=== PATIENT | female | born 1985 | race Caucasian/White ===

== ENCOUNTER 2019-02-14 06:17 | Inpatient (IN) | payer OTHER ==
[2019-02-14] MEDS ORDERED: ROPIVACAINE 0.5 % 30 ML VIAL ×2 (06:54→07:33)
[2019-02-14] MEDS ORDERED: NEOMYC/POLYMYX/BACIT 30 GM OINT (06:54)
[2019-02-14] MEDS ORDERED: SUGAMMADEX SODIUM 200 MG/2 ML VIAL IV (07:26)
[2019-02-14] MEDS ORDERED: PROPOFOL 20 ML (07:27)
[2019-02-14] MEDS ORDERED: GLYCOPYRROLATE 0.4 MG INJ (07:27)
[2019-02-14] MEDS ORDERED: CEFAZOLIN 1 GM INJ (07:27)
[2019-02-14] MEDS ORDERED: ROCURONIUM 50 MG INJ (07:27)
[2019-02-14] MEDS ORDERED: NEOSTIGMINE 3 MG/3 ML SYRINGE (07:27)
[2019-02-14] MEDS ORDERED: DEXAMETHASONE 4 MG/ML 5 ML INJ (07:30)
[2019-02-14] MEDS ORDERED: ONDANSETRON 4 MG INJ (07:30)
[2019-02-14] MEDS ORDERED: FENTAnyl 50 MCG/ML VIAL (07:30)
[2019-02-14] MEDS ORDERED: MIDAZOLAM 1 MG/ML 2 ML INJ (07:30)
[2019-02-14] MEDS ORDERED: ONDANSETRON 4 MG INJ IV (08:00)
[2019-02-14] MEDS: CEFAZOLIN 1 GM/50 ML (PMX) 50 ML IVPB ×2 (08:00→17:03)
[2019-02-14] MEDS ORDERED: CEFAZOLIN 1 GM INJ IV (08:00)
[2019-02-14] MEDS ORDERED: TRIMETHOBENZAMIDE 100 MG/ML VIAL IM (09:00)
[2019-02-14] MEDS: GABAPENTIN 300 MG CAP PO ×3 (09:00→21:57)
[2019-02-14] MEDS ORDERED: LABETALOL HCL 20MG INJ IV (09:00)
[2019-02-14] MEDS ORDERED: ALBUTEROL 0.083% (NEB) 2.5 MG/3 ML AMP HHN (09:00)
[2019-02-14] MEDS ORDERED: FENTAnyl 50 MCG/ML VIAL IV ×2 (09:00)
[2019-02-14] MEDS ORDERED: IPRATROPIUM (NEB) 0.5 MG/2.5 ML AMP HHN (09:00)
[2019-02-14] MEDS ORDERED: hydrALAzine 20 MG INJ IV (09:00)
[2019-02-14] MEDS ORDERED: OXYCODONE/ACETAMINOPHEN (5/325) TAB PO ×2 (09:00)
[2019-02-14] MEDS ORDERED: EPHEDrine 25 MG/5 ML SYG IV (09:00)
[2019-02-14] MEDS: POLYMYXIN/BACITRACIN 1L IRRIG (09:57)
[2019-02-14] MEDS ORDERED: POLYMYXIN/BACITRACIN 1L IRRIG (11:55)
[2019-02-14] MEDS: MEPERIDINE 25 MG INJ IV (12:44)
[2019-02-14] MEDS: ONDANSETRON 4 MG INJ IV (12:45)
[2019-02-14] MEDS: MIDAZOLAM 1 MG/ML 2 ML INJ IV (12:48)
[2019-02-14] MEDS: HYDROmorphONE 1 MG/5 ML IV SYRINGE IV ×5 (12:55→13:36)
[2019-02-14] MEDS: DIPHENHYDRAMINE 50 MG INJ IV (13:03)
[2019-02-14] MEDS: FENTAnyl 50 MCG/ML VIAL IV (13:40)
[2019-02-14] MEDS: HYDROmorphONE 1 MG/ML SYG IV ×2 (14:53→17:12)
[2019-02-14] MEDS: oxyCODONE 5 MG TAB PO (15:58)
[2019-02-14 16:41] LABS: HEPATITIS B SURFACE ANTIGEN NEGATIVE (NEGATIVE)
[2019-02-14 16:58] LABS: HIV 1&2 ANTIBODY NEGATIVE (NEGATIVE)
[2019-02-14] MEDS ORDERED: HYDROmorphONE 1 MG/ML SYG IV (17:00)
[2019-02-14 17:15] LABS: HEPATITIS C VIRAL ANTIBODY REACTIVE (NEGATIVE)
[2019-02-14] MEDS: NICOTINE (14 MG/24 HR) PATCH TRANSDERM (18:14)
[2019-02-14] MEDS: HYDROmorphONE 2 MG/ML SYG IV (20:27)
[2019-02-14] MEDS: QUETIAPINE 25 MG TAB PO (21:00)
[2019-02-14] MEDS: METHADONE (1 MG/ML 5 ML PO UD SYG) PO (21:58)
[2019-02-14] MEDS: HYDROmorphONE 0.2 MG/ML PCA IV (22:10)
[2019-02-15] MEDS: CEFAZOLIN 1 GM/50 ML (PMX) 50 ML IVPB ×4 (00:26→23:55)
[2019-02-15] MEDS: METHADONE (1 MG/ML 5 ML PO UD SYG) PO ×4 (05:54→23:55)
[2019-02-15] MEDS: HYDROmorphONE 2 MG/ML SYG IV ×3 (06:03→11:57)
[2019-02-15] MEDS: MULTIVITAMINS 10 ML, THIAMINE 100 MG, FOLIC ACID 1 MG in SOD CHLORIDE 0.9% 1,000 ML IVPB (08:59)
[2019-02-15] MEDS: GABAPENTIN 300 MG CAP PO ×3 (08:59→22:27)
[2019-02-15] MEDS: QUETIAPINE 25 MG TAB PO ×2 (09:00→22:27)
[2019-02-15] MEDS: NICOTINE (14 MG/24 HR) PATCH TRANSDERM (09:01)
[2019-02-15] MEDS: LORAZEPAM 2 MG INJ IV ×3 (09:05→22:36)
[2019-02-15 12:39] LABS: ADD MAN DIFF? NO
[2019-02-15 12:43] LABS: WHITE BLOOD COUNT 8.1 10^3/ul (4.8-10.8)
[2019-02-15 12:43] LABS: BASOPHILS % 0.1 % (0.0-2.0); HEMATOCRIT 33.8 % (37.0-47.0); LYMPHOCYTES # 1.9 10^3/ul (0.8-2.9); LYMPHOCYTES % 23.9 % (15.0-51.0); MEAN CORPUSCULAR HEMOGLOBIN 30.7 pg (29.0-33.0); MEAN CORPUSCULAR HGB CONC 32.5 g/dl (32.0-37.0); MEAN CORPUSCULAR VOLUME 94.4 fl (82.0-101.0); MEAN PLATELET VOLUME 9.5 fl (7.4-10.4); MONOCYTE # 0.9 10^3/ul (0.3-0.9); MONOCYTES % 11.2 % (0.0-11.0); NEUTROPHIL # 5.2 10^3/ul (1.6-7.5); NEUTROPHILS % 64.6 % (39.0-77.0); PLATELET COUNT 296 10^3/UL (140-415); RED BLOOD COUNT 3.58 10^6/ul (4.20-5.40); RED CELL DISTRIBUTION WIDTH 13.4 % (11.5-14.5)
[2019-02-15 13:07] LABS: ALANINE AMINOTRANSFERASE 34 IU/L (13-69); ALBUMIN 3.6 g/dl (3.3-4.9); ALBUMIN/GLOBULIN RATIO 1.28; ALKALINE PHOSPHATASE 61 IU/L (42-121); ANION GAP 7 (5-13); ASPARTATE AMINO TRANSFERASE 24 IU/L (15-46); BILIRUBIN,INDIRECT 0.7 mg/dl (0-1.1); BILIRUBIN,TOTAL 0.7 mg/dl (0.2-1.3); BLOOD UREA NITROGEN 9 mg/dl (7-20); CALCIUM 8.8 mg/dl (8.4-10.2); CARBON DIOXIDE 26 mmol/L (21-31); CHLORIDE 107 mmol/L (97-110); CREATININE 0.53 mg/dl (0.44-1.00); Estimated GFR > 60 mL/min (>60); GLUCOSE 97 mg/dl (70-220); POTASSIUM 3.8 mmol/L (3.5-5.1); SODIUM 140 mmol/L (135-144); TOTAL PROTEIN 6.4 g/dl (6.1-8.1)
[2019-02-15 13:08] LABS: INR 0.92; PROTIME 12.5 Sec (11.9-14.9)
[2019-02-15] MEDS: ACETAMINOPHEN 325 MG TAB PO (13:34)
[2019-02-15] MEDS ORDERED: NALOXONE (0.4 MG/ML) INJ IV (14:30)
[2019-02-15] MEDS: HYDROmorphONE 0.2 MG/ML PCA IV (17:10)
[2019-02-15] MEDS: RIVAROXABAN 10 MG TABLET PO (17:55)
[2019-02-15] MEDS: CHOLECALCIFEROL 2,000 UNIT CAP PO (21:30)
[2019-02-15] MEDS: VITAMIN B COMPLEX/VIT C CAP PO (22:35)
[2019-02-16] MEDS: HYDROmorphONE 0.2 MG/ML PCA IV ×4 (00:40→23:51)
[2019-02-16] MEDS: METHADONE (1 MG/ML 5 ML PO UD SYG) PO ×3 (06:04→17:17)
[2019-02-16] MEDS: VITAMIN B COMPLEX/VIT C CAP PO (08:20)
[2019-02-16] MEDS: MULTIVITAMINS 10 ML, THIAMINE 100 MG, FOLIC ACID 1 MG in SOD CHLORIDE 0.9% 1,000 ML IVPB (08:20)
[2019-02-16] MEDS: GABAPENTIN 300 MG CAP PO ×3 (08:20→19:37)
[2019-02-16] MEDS: CHOLECALCIFEROL 2,000 UNIT CAP PO (08:21)
[2019-02-16] MEDS: NICOTINE (14 MG/24 HR) PATCH TRANSDERM (08:21)
[2019-02-16] MEDS: QUETIAPINE 25 MG TAB PO ×2 (08:21→19:38)
[2019-02-16 13:55] LABS: AMPHETAMINE/METHAMPHETAMINE Negative (NEGATIVE); BARBITURATES Negative (NEGATIVE); BENZODIAZEPINES Negative (NEGATIVE); CANNABINOIDS Negative (NEGATIVE); COCAINE Negative (NEGATIVE); OPIATES Positive (NEGATIVE)
[2019-02-16] MEDS: RIVAROXABAN 10 MG TABLET PO (17:16)
[2019-02-16] MEDS: LORAZEPAM 2 MG INJ IV (18:08)
[2019-02-16] MEDS: ACETAMINOPHEN 325 MG TAB PO (19:37)
[2019-02-16] MEDS: DIPHENHYDRAMINE 25 MG CAP PO (19:37)
[2019-02-17] MEDS: METHADONE (1 MG/ML 5 ML PO UD SYG) PO ×3 (00:25→13:18)
[2019-02-17] MEDS: LORAZEPAM 2 MG INJ IV ×3 (02:08→19:57)
[2019-02-17] MEDS: DIPHENHYDRAMINE 25 MG CAP PO (04:30)
[2019-02-17] MEDS: QUETIAPINE 25 MG TAB PO ×2 (08:12→19:57)
[2019-02-17] MEDS: NICOTINE (14 MG/24 HR) PATCH TRANSDERM (08:12)
[2019-02-17] MEDS: MULTIVITAMINS 10 ML, THIAMINE 100 MG, FOLIC ACID 1 MG in SOD CHLORIDE 0.9% 1,000 ML IVPB (08:12)
[2019-02-17] MEDS: GABAPENTIN 300 MG CAP PO ×3 (08:12→19:57)
[2019-02-17] MEDS: CHOLECALCIFEROL 2,000 UNIT CAP PO (08:12)
[2019-02-17] MEDS: VITAMIN B COMPLEX/VIT C CAP PO (08:12)
[2019-02-17] MEDS: HYDROmorphONE 0.2 MG/ML PCA IV (08:20)
[2019-02-17] MEDS: HYDROmorphONE 2 MG TAB PO ×3 (15:45→23:13)
[2019-02-17] MEDS: HYDROmorphONE 2 MG/ML SYG IV ×2 (17:16→20:46)
[2019-02-17] MEDS: RIVAROXABAN 10 MG TABLET PO (19:12)
[2019-02-18] MEDS: HYDROmorphONE 2 MG/ML SYG IV ×4 (01:15→12:30)
[2019-02-18] MEDS: LORAZEPAM 2 MG INJ IV ×2 (03:08→14:34)
[2019-02-18] MEDS: HYDROmorphONE 2 MG TAB PO ×4 (06:42→22:02)
[2019-02-18] MEDS: CHOLECALCIFEROL 2,000 UNIT CAP PO (08:53)
[2019-02-18] MEDS: VITAMIN B COMPLEX/VIT C CAP PO (08:53)
[2019-02-18] MEDS: GABAPENTIN 300 MG CAP PO ×3 (08:54→19:56)
[2019-02-18] MEDS: NICOTINE (14 MG/24 HR) PATCH TRANSDERM (08:54)
[2019-02-18] MEDS: QUETIAPINE 25 MG TAB PO ×2 (08:55→20:10)
[2019-02-18] MEDS: RIVAROXABAN 10 MG TABLET PO (18:19)
[2019-02-18] MEDS: METHADONE (1 MG/ML 5 ML PO UD SYG) PO (19:56)
[2019-02-18] MEDS: LORAZEPAM 1 MG TAB PO (20:35)
[2019-02-19] MEDS: LORAZEPAM 1 MG TAB PO ×4 (00:31→17:02)
[2019-02-19] MEDS: CARISOPRODOL 350 MG TAB PO ×2 (01:11→09:39)
[2019-02-19] MEDS: HYDROmorphONE 2 MG TAB PO ×5 (02:02→23:34)
[2019-02-19] MEDS: METHADONE (1 MG/ML 5 ML PO UD SYG) PO ×3 (04:00→21:49)
[2019-02-19] MEDS: GABAPENTIN 300 MG CAP PO ×3 (09:16→21:47)
[2019-02-19] MEDS: QUETIAPINE 25 MG TAB PO ×2 (09:16→21:47)
[2019-02-19] MEDS: CHOLECALCIFEROL 2,000 UNIT CAP PO (09:16)
[2019-02-19] MEDS: VITAMIN B COMPLEX/VIT C CAP PO (09:16)
[2019-02-19] MEDS: NICOTINE (14 MG/24 HR) PATCH TRANSDERM (09:17)
[2019-02-19] MEDS: RIVAROXABAN 10 MG TABLET PO (17:02)
[2019-02-20] MEDS: METHADONE (1 MG/ML 5 ML PO UD SYG) PO ×3 (04:48→20:06)
[2019-02-20] MEDS: LORAZEPAM 1 MG TAB PO ×2 (04:56→15:03)
[2019-02-20] MEDS: NICOTINE (14 MG/24 HR) PATCH TRANSDERM (08:19)
[2019-02-20] MEDS: GABAPENTIN 300 MG CAP PO ×3 (08:19→21:27)
[2019-02-20] MEDS: CHOLECALCIFEROL 2,000 UNIT CAP PO (08:19)
[2019-02-20] MEDS: QUETIAPINE 25 MG TAB PO ×3 (08:19→20:11)
[2019-02-20] MEDS: HYDROmorphONE 2 MG TAB PO ×3 (08:20→20:06)
[2019-02-20] MEDS ORDERED: VITAMIN A & D 5 GM OINT PACKET TOP (08:26)
[2019-02-20] MEDS: VITAMIN B COMPLEX/VIT C CAP PO (09:17)
[2019-02-20] MEDS: ACETAMINOPHEN 325 MG TAB PO ×2 (14:26→18:31)
[2019-02-20] MEDS: RIVAROXABAN 10 MG TABLET PO (18:27)
[2019-02-20] MEDS: CARISOPRODOL 350 MG TAB PO (18:46)
[2019-02-20] MEDS ORDERED: VANCOMYCIN IV PER PHARMACY XX (19:30)
[2019-02-20] MEDS ORDERED: CEFAZOLIN 2 GM/50 ML (PMX) 50 ML IVPB (22:00)
[2019-02-20] MEDS: VANCOMYCIN HCL 1.5 GM in SOD CHLORIDE 0.9% 250 ML IVPB (22:14)
[2019-02-20 22:40] LABS: AMPHETAMINE/METHAMPHETAMINE Negative (NEGATIVE); BARBITURATES Negative (NEGATIVE); BENZODIAZEPINES Negative (NEGATIVE); CANNABINOIDS Negative (NEGATIVE); COCAINE Negative (NEGATIVE); OPIATES Positive (NEGATIVE)
[2019-02-21] MEDS: HYDROmorphONE 2 MG TAB PO ×4 (02:29→20:08)
[2019-02-21] MEDS: METHADONE (1 MG/ML 5 ML PO UD SYG) PO ×3 (04:30→20:09)
[2019-02-21] MEDS: VANCOMYCIN 750 MG (PMX) 250 ML IVPB ×3 (04:31→22:54)
[2019-02-21] MEDS: ACETAMINOPHEN 325 MG TAB PO (04:31)
[2019-02-21] MEDS: CARISOPRODOL 350 MG TAB PO ×2 (05:07→17:08)
[2019-02-21 08:09] LABS: ADD MAN DIFF? NO
[2019-02-21 08:17] LABS: BASOPHIL # 0.1 10^3/ul (0.0-0.1); BASOPHILS % 0.9 % (0.0-2.0); EOSINOPHILS # 0.1 10^3/ul (0.0-0.5); EOSINOPHILS % 1.3 % (0.0-7.0); HEMATOCRIT 37.6 % (37.0-47.0); LYMPHOCYTES # 1.2 10^3/ul (0.8-2.9); LYMPHOCYTES % 18.1 % (15.0-51.0); MEAN CORPUSCULAR HEMOGLOBIN 30.6 pg (29.0-33.0); MEAN CORPUSCULAR HGB CONC 31.9 g/dl (32.0-37.0); MEAN CORPUSCULAR VOLUME 95.9 fl (82.0-101.0); MONOCYTES % 14.1 % (0.0-11.0); NEUTROPHIL # 4.4 10^3/ul (1.6-7.5); NEUTROPHILS % 64.6 % (39.0-77.0); PLATELET COUNT 333 10^3/UL (140-415); RED BLOOD COUNT 3.92 10^6/ul (4.20-5.40); RED CELL DISTRIBUTION WIDTH 12.7 % (11.5-14.5)
[2019-02-21 08:17] LABS: WHITE BLOOD COUNT 6.8 10^3/ul (4.8-10.8)
[2019-02-21] MEDS: GABAPENTIN 300 MG CAP PO ×3 (08:32→21:44)
[2019-02-21] MEDS: CHOLECALCIFEROL 2,000 UNIT CAP PO (08:33)
[2019-02-21] MEDS: NICOTINE (14 MG/24 HR) PATCH TRANSDERM (08:33)
[2019-02-21] MEDS: VITAMIN B COMPLEX/VIT C CAP PO (08:34)
[2019-02-21] MEDS: QUETIAPINE 25 MG TAB PO ×2 (08:34→21:00)
[2019-02-21 08:47] LABS: ANION GAP 5 (5-13); BLOOD UREA NITROGEN 7 mg/dl (7-20); CALCIUM 8.8 mg/dl (8.4-10.2); CARBON DIOXIDE 29 mmol/L (21-31); CHLORIDE 104 mmol/L (97-110); CREATININE 0.54 mg/dl (0.44-1.00); Estimated GFR > 60 mL/min (>60); GLUCOSE 94 mg/dl (70-220); MAGNESIUM 1.9 mg/dl (1.7-2.5); PHOSPHORUS 3.4 mg/dl (2.5-4.9); POTASSIUM 4.3 mmol/L (3.5-5.1); SODIUM 138 mmol/L (135-144)
[2019-02-21] MEDS: LORAZEPAM 1 MG TAB PO ×3 (14:04→21:44)
[2019-02-21] MEDS: RIVAROXABAN 10 MG TABLET PO (18:11)
[2019-02-21] MEDS ORDERED: POLYETHYLENE GLYCOL 17 GM PACKET GTB (22:30)
[2019-02-21] MEDS: DOCUSATE SODIUM 100 MG CAP PO (22:41)
[2019-02-21] MEDS: POLYETHYLENE GLYCOL 17 GM PACKET PO (22:42)
[2019-02-21 22:47] LABS: VANCOMYCIN,TROUGH 9.1 ug/ml (10.0-20.0)
[2019-02-22] MEDS: CARISOPRODOL 350 MG TAB PO ×3 (00:44→17:30)
[2019-02-22] MEDS: HYDROmorphONE 2 MG TAB PO ×5 (00:45→21:08)
[2019-02-22] MEDS: METHADONE (1 MG/ML 5 ML PO UD SYG) PO ×3 (04:05→21:07)
[2019-02-22] MEDS: VANCOMYCIN 1 GM 250 ML IVPB (05:31)
[2019-02-22] MEDS: QUETIAPINE 25 MG TAB PO ×2 (09:00→21:10)
[2019-02-22] MEDS: GABAPENTIN 300 MG CAP PO ×3 (09:24→21:07)
[2019-02-22] MEDS: CHOLECALCIFEROL 2,000 UNIT CAP PO (09:25)
[2019-02-22] MEDS: DOCUSATE SODIUM 100 MG CAP PO (09:26)
[2019-02-22] MEDS: VITAMIN B COMPLEX/VIT C CAP PO (09:28)
[2019-02-22] MEDS: POLYETHYLENE GLYCOL 17 GM PACKET PO (09:29)
[2019-02-22] MEDS: NICOTINE (14 MG/24 HR) PATCH TRANSDERM (09:36)
[2019-02-22] MEDS: RIVAROXABAN 10 MG TABLET PO (17:29)
[2019-02-22] MEDS: LORAZEPAM 1 MG TAB PO ×2 (17:33→21:56)
[2019-02-23] MEDS: HYDROmorphONE 2 MG TAB PO ×3 (01:11→11:21)
[2019-02-23] MEDS: LORAZEPAM 1 MG TAB PO ×2 (02:20→07:51)
[2019-02-23] MEDS: CARISOPRODOL 350 MG TAB PO ×2 (02:20→11:20)
[2019-02-23] MEDS: METHADONE (1 MG/ML 5 ML PO UD SYG) PO ×2 (04:15→11:21)
[2019-02-23] MEDS: CHOLECALCIFEROL 2,000 UNIT CAP PO (08:36)
[2019-02-23] MEDS: VITAMIN B COMPLEX/VIT C CAP PO (08:36)
[2019-02-23] MEDS: POLYETHYLENE GLYCOL 17 GM PACKET PO (08:37)
[2019-02-23] MEDS: DOCUSATE SODIUM 100 MG CAP PO (08:37)
[2019-02-23] MEDS: QUETIAPINE 25 MG TAB PO (08:37)
[2019-02-23] MEDS: GABAPENTIN 300 MG CAP PO ×2 (08:37→12:59)
[2019-02-23] MEDS: NICOTINE (14 MG/24 HR) PATCH TRANSDERM (08:51)
[2019-02-23] MEDS: METHADONE 10 MG TAB PO (13:12)
== END 2019-02-23 13:30 | disposition home or self-care (01) | DRG 493 ==
LOC: SDS 06:17 → MS1 02-18 18:42 → 5EC 02-19 18:25 → SDS 06:17 → REC 08:00 → MS1 14:36
PROVIDERS: Orthopaedic Surgery
PROC: 0QSH04Z Reposition Left Tibia with Internal Fixation Device, Open Approach (ICD-10-PCS; principal; 2019-02-14 07:30)
PROC: 0QSK04Z Reposition Left Fibula with Internal Fixation Device, Open Approach (ICD-10-PCS; 2019-02-14 07:30)
PROC: 0SPG04Z Removal of Internal Fixation Device from Left Ankle Joint, Open Approach (ICD-10-PCS; 2019-02-14 07:30)
DX: S82.872A Displaced pilon fracture of left tibia, initial encounter for closed fracture (principal); T84.84XA Pain due to internal orthopedic prosthetic devices, implants and grafts, initial encounter; F11.23 Opioid dependence with withdrawal; F10.239 Alcohol dependence with withdrawal, unspecified; S82.452A Displaced comminuted fracture of shaft of left fibula, initial encounter for closed fracture; F14.10 Cocaine abuse, uncomplicated; F15.10 Other stimulant abuse, uncomplicated; Z72.89 Other problems related to lifestyle; B19.20 Unspecified viral hepatitis C without hepatic coma; Z72.0 Tobacco use; Z59.0 Homelessness; R45.1 Restlessness and agitation; F41.9 Anxiety disorder, unspecified
CPT/HCPCS: 73610; 76705; 80048; 80053; 80202; 80307; 82306; 83735; 84100; 85025; 85610; 86703; 86803; 87040-91; 87081; 87340; 87522; 87536; 88300; 97116; 97161; 97530

== ENCOUNTER 2019-03-31 09:44 | Emergency (ER) | payer OTHER ==
[2019-03-31] MEDS: TRIMETHOPRIM/SULFAMETHOX (DS) TAB PO (10:15)
[2019-03-31] MEDS: HYDROCODONE/APAP (10/325) TAB PO (10:15)
[2019-03-31] MEDS: CEPHALEXIN 500 MG CAP PO (10:15)
== END 2019-03-31 11:03 | disposition home or self-care (01) ==
LOC: E/R 11:03
DX: L73.2 Hidradenitis suppurativa (principal); F17.210 Nicotine dependence, cigarettes, uncomplicated; G89.29 Other chronic pain
CPT/HCPCS: 93005; 99283-25